=== PATIENT | male | born 1980 | race Caucasian/White ===

== ENCOUNTER → 2023-11-01 | Day surgery (SDC) | payer OTHER ==
[~2023-11-01] MED LIST: DEXAMETHASONE SOD PHOS INJ 4 MG/ML SDV ONE; EPINEPHRINE HCL 1:1000 1ML 1 MG/ML AMP ONE; FENTANYL CITRATE/PF 100MCG/2 ML INJ ONE; ICOSAPENT ETHYL1 GM PO; LIDOCAINE 1% W/EPINEPHRINE 20 ML VIAL ONE; LIDOCAINE HCL 2% LOCAL INJ 5 ML SDV VIAL INJ ONE; MAGNESIUM OXID400 MG PO; METOPROLOL SUCC25 MG PO; MIDAZOLAM HCL 2 MG/2 ML VIAL ONE; ONDANSETRON HCL INJ 2MG/ML 2ML 2 MG/ML VIAL ONE; PROPOFOL IV EMULSION 10 MG/ML 20 ML VIAL ONE; ROCURONIUM BROMIDE 10 MG/ML 5ML VIAL IV ONE; SEVOFLURANE INHAL SOLN 250 ML PEN BTL ONE; SUGAMMADEX SODIUM 200 MG/2 ML VIAL IV ONE
[2023-11-01] MEDS: LACTATED RINGER'S 1,000 ML ONE (08:23)
[2023-11-01 11:20] VITALS: BP 130/92; PULSE 65; RESP 17; O2SAT 99
== END | disposition home or self-care (01) ==
LOC: OR 07:49
PROVIDERS: ATTEND Otolaryngology Otolaryngology/Facial Plastic Surgery
DX: J34.2 Deviated nasal septum (principal); J34.89 Other specified disorders of nose and nasal sinuses; M95.0 Acquired deformity of nose; I10 Essential (primary) hypertension; E66.01 Morbid (severe) obesity due to excess calories; Z79.899 Other long term (current) drug therapy; Z87.891 Personal history of nicotine dependence
CPT/HCPCS: 30520; 88302; 88311; 93005; J0171; J1100; J2001; J2250; J2405; J2704; J3010; J7121; 88300